=== PATIENT | female | born 1980 | race Two or more races ===

== ENCOUNTER 2016-06-20 00:29 | Emergency (ER) | payer SELFPAY ==
[2016-06-20 01:16] VITALS: BP 139/71; PULSE 112; TEMP 98.3; BMI 24.0
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
[2016-06-20] MEDS ORDERED: IBUPROFEN 400 MG TABLET (FP) PO ONE ×2 (02:49→02:52)
[2016-06-20] MEDS ORDERED: METHOCARBAMOL 500 MG TABLET PO ONE (02:49)
[2016-06-20] MEDS ORDERED: METHOCARBAMOL 500 MG TABLET ONE (02:52)
== END 2016-06-20 02:55 | disposition home or self-care (01) ==
LOC: JER 00:29
DX: M54.6 Pain in thoracic spine (principal)
CPT/HCPCS: 99281-25